=== PATIENT | female | born 2000 | race Caucasian/White ===

== ENCOUNTER 2022-01-15 23:49 | Emergency (ER) | payer BC ==
[~2022-01-15] VITALS: Ht 149.9 cm; Wt 58.1 kg
[2022-01-16 00:06] VITALS: BP 137/64
--- NOTE | 2022-01-16 00:16 | NUR ---
21 YO/F BIB SELF ACCOMPANIED BY MOTHER W C/O "HEAVY VAGINAL BLEEDING" HAS FILLED UP X1 PAD, + LOWER ABDOMINAL PAIN 4/10 CRAMP LIKE INT, NON-RAD XAPPRO 1 HOUR. PT REPORTS SHE IS 14 WEEKS . PT DENIES ANY DIZZINESS, N/V/D. PT LAYING IN BED LOCKED IN LOWEST POSITION. WILL CONTINUE TO MONITOR. PMH: DENIES ALLERGIES: DENIES
--- NOTE | 2022-01-16 00:21 | NUR ---
PT AMBULATORY TO BATHROOM W STEADY GAIT.
[2022-01-16 00:27] LABS: BASOPHILS # (AUTO) 0.1 K/uL (0.00-0.22); BASOPHILS % (AUTO) 0.7 % (0.0-2.0); EOSINOPHILS # (AUTO) 0.1 K/uL (0-0.4); EOSINOPHILS % (AUTO) 1.3 % (0.0-4.0); HEMATOCRIT 38.8 % (36-48); HEMOGLOBIN 12.7 g/dL (12.0-16.0); LYMPHOCYTES # (AUTO) 1.9 K/uL (2.5-16.5); LYMPHOCYTES % (AUTO) 24.7 % (20.5-51.1); MEAN CORPUSCULAR HEMOGLOBIN 27 pg (27-31); MEAN CORPUSCULAR HGB CONC 33 g/dL (33-37); MEAN CORPUSCULAR VOLUME 81.6 fL (80-94); MONOCYTES # (AUTO) 0.6 K/uL (0.8-1.0); MONOCYTES % (AUTO) 8.1 % (1.7-9.3); NEUTROPHILS % (AUTO) 65.2 % (42.2-75.2); PLATELET COUNT (AUTO) 250 K/uL (140-450); RED BLOOD CELL COUNT(AUTO) 4.75 MIL/uL (4.20-5.40); RED CELL DISTRIBUTION WIDTH 19.8 % (11.6-13.7); WHITE BLOOD COUNT (AUTO) 7.7 K/uL (4.8-10.8)
[2022-01-16 00:50] LABS: APPEARANCE,URINE CLOUDY (CLEAR); BILIRUBIN,URINE NEGATIVE (NEGATIVE); BLOOD, URINE 3+ (NEGATIVE); COLOR,URINE RED (YELLOW); LEUKOCYTE ESTERASE ,URINE TRACE (NEGATIVE); NITRITE, URINE POSITIVE (NEGATIVE); PH,URINE 6.5 (5.0-9.0); UGLUCOSE NEGATIVE (NEGATIVE)
[2022-01-16 01:05] LABS: RBC,URINE TOO NUMEROUS TO COUN /HPF (0-5)
--- NOTE | 2022-01-16 01:09 | NUR ---
ER URINE DIP MACHINE UNABLE TO READ STRIP AT THIS TIME. PER ERMD OK SO SEND URINE TO LAB W/O ER URINE DIP.
--- NOTE | 2022-01-16 02:30 | NUR ---
ER MD AT BEDSIDE WITH FEMALE RN ANAND FOR PELVIC EXAM
--- NOTE | 2022-01-16 02:41 | NUR ---
PROVIDED STATUS TO PT MOTHER FRIDA, PER PT OK TO PROVIDE MOTHER W ANY INFORMATION.
[2022-01-16] MEDS ORDERED: NITR100C7 PO (03:02)
[2022-01-16 03:40] VITALS: BP 100/63
== END 2022-01-16 03:40 | disposition home or self-care (01) ==
LOC: MED 23:49
DX: O20.0 Threatened abortion (principal); O23.42 Unspecified infection of urinary tract in pregnancy, second trimester; Z3A.15 15 weeks gestation of pregnancy; Z79.2 Long term (current) use of antibiotics
CPT/HCPCS: 36415; 76817; 81001; 81025; 84702; 85025; 86900; 86901; 87086; 99284